=== PATIENT | female | born 1995 | race Hispanic/Latino ===

== ENCOUNTER 2023-04-13 02:28 | Emergency (ER) | payer OTHER ==
[~2023-04-13] VITALS: Ht 170.2 cm; Wt 103.0 kg
[2023-04-13] MEDS ORDERED: ALBUTEROL/IPRATROPIUM 3 ML NEB ONE (03:02)
[2023-04-13] MEDS ORDERED: ALBUTEROL/IPRATROPIUM 3 ML NEB NEB ONE (03:15)
[2023-04-13 03:18] VITALS: PULSE 86; RESP 18; O2SAT 96
[2023-04-13] MEDS ORDERED: PROVENTIL HFA6.7 GM INH (03:20)
[2023-04-13] MEDS ORDERED: GUAIFEN-CODEINE5 ML PO (03:21)
[2023-04-13] MEDS ORDERED: AZITHROMYCIN250 MG PO (03:26)
== END 2023-04-13 03:53 | disposition home or self-care (01) ==
LOC: FSED 02:42
DX: R05.9 Cough, unspecified (principal); J20.9 Acute bronchitis, unspecified
CPT/HCPCS: 81025; 99283